=== PATIENT | male | born 1960 | race Caucasian/White ===

== ENCOUNTER 2022-01-19 07:59 | Emergency (ER) | payer BC ==
[2022-01-19] MEDS ORDERED: CIPROFLOXACIN HCL 500 MG TAB ONE (08:16)
[2022-01-19] MEDS ORDERED: LIDOCAINE VISCOUS 2% SOLN 15 ML UDC ONE (08:16)
[2022-01-19] MEDS ORDERED: LIDOCAINE HCL JELLY 2% 6 ML SYRINGE TOP ONE (08:17)
[2022-01-19 08:21] LABS: Urine Blood 2+ (Negative); Urine Glucose Negative (Negative); Urine Protein Negative (Negative); Urine Specific Gravity 1.025 (1.005-1.030)
--- NOTE | 2022-01-19 08:51 | EDPHYS ---
Physician Documentation [facility] Name: Popeye Blandon Age: 61 yrs Sex: Male : 1960 Arrival Date: 01/19/2022 Time: 08:00 Bed 8 Private MD: JEB Physician Warren Ibarra HPI: 01/19 08:45 This 61 yrs old Male presents to ER via Ambulatory with complaints of Urinary brisa Retention. 08:45 The patient presents with urinary symptoms, retention, unable to void. Onset: The brisa symptoms/episode began/occurred 1 day(s) ago. Modifying factors: The symptoms are alleviated by nothing, the symptoms are aggravated by nothing. Associated signs and symptoms: The patient has no apparent associated signs or symptoms. Severity of symptoms: At their worst the symptoms were mild, in the emergency department the symptoms have resolved. The patient has not experienced similar symptoms in the past. Historical: - Allergies: 08:11 No Known Allergies; vg1 - PMHx: 08:11 Enlarge Prostate; vg1 - Immunization history:: Client reports receiving the 2nd dose of the Covid vaccine. - Social history:: Smoking status: Patient denies any tobacco usage or history of. ROS: 08:46 Constitutional: Negative for fever, chills, and weight loss, Eyes: Negative for injury, brisa pain, redness, and discharge, ENT: Negative for injury, pain, and discharge, Neck: Negative for injury, pain, and swelling, Cardiovascular: Negative for chest pain, palpitations, and edema, Respiratory: Negative for shortness of breath, cough, wheezing, and pleuritic chest pain, Back: Negative for injury and pain, MS/Extremity: Negative for injury and deformity, Skin: Negative for injury, rash, and discoloration, Neuro: Negative for headache, weakness, numbness, tingling, and seizure, Psych: Negative for depression, anxiety, suicide ideation, homicidal ideation, and hallucinations, Allergy/Immunology: Negative for hives, rash, and allergies, Endocrine: Negative for neck swelling, polydipsia, polyuria, polyphagia, and marked weight changes, Hematologic/Lymphatic: Negative for swollen nodes, abnormal bleeding, and unusual bruising. 08:46 Abdomen/GI: Positive for abdominal pain, of the suprapubic area. Exam: 08:46 Constitutional: This is a well developed, well nourished patient who is awake, alert, brisa and in no acute distress. Head/Face: Normocephalic, atraumatic. Eyes: Pupils equal round and reactive to light, extra-ocular motions intact. Lids and lashes normal. Conjunctiva and sclera are non-icteric and not injected. Cornea within normal limits. Periorbital areas with no swelling, redness, or edema. ENT: Nares patent. No nasal discharge, no septal abnormalities noted. Tympanic membranes are normal and external auditory canals are clear. Oropharynx with no redness, swelling, or masses, exudates, or evidence of obstruction, uvula midline. Mucous membranes moist. Neck: Trachea midline, no thyromegaly or masses palpated, and no cervical lymphadenopathy. Supple, full range of motion without nuchal rigidity, or vertebral point tenderness. No Meningismus. Chest/axilla: Normal chest wall appearance and motion. Nontender with no deformity. No lesions are appreciated. Cardiovascular: Regular rate and rhythm with a normal S1 and S2. No gallops, murmurs, or rubs. Normal PMI, no JVD. No pulse deficits. Respiratory: Lungs have equal breath sounds bilaterally, clear to auscultation and percussion. No rales, rhonchi or wheezes noted. No increased work of breathing, no retractions or nasal flaring. Back: No spinal tenderness. No costovertebral tenderness. Full range of motion. Male : Normal genitalia with no discharge or lesions. Skin: Warm, dry with normal turgor. Normal color with no rashes, no lesions, and no evidence of cellulitis. MS/ Extremity: Pulses equal, no cyanosis. Neurovascular intact. Full, normal range of motion. Neuro: Awake and alert, GCS 15, oriented to person, place, time, and situation. Cranial nerves II-XII grossly intact. Motor strength 5/5 in all extremities. Sensory grossly intact. Cerebellar exam normal. Normal gait. Psych: Awake, alert, with orientation to person, place and time. Behavior, mood, and affect are within normal limits. 08:46 Abdomen/GI: Inspection: distension, that is moderate, in the suprapubic area, Liver: no appreciated palpable abnormalities, Hernia: not appreciated. Vital Signs: 08:10 BP 164 / 99; Pulse 73; Resp 26; Pulse Ox 100% on R/A; Weight 90.72 kg; Height 5 ft. 7 vg1 in. (170.18 cm); Pain 10/10; 08:14 Temp 97.7(O); jl7 08:24 Resp 20; ll1 09:11 BP 140 / 59; Pulse 65; Resp 15; Pulse Ox 93% on R/A; jl7 08:10 Body Mass Index 31.32 (90.72 kg, 170.18 cm) vg1 MDM: 08:02 Patient medically screened. brisa 08:48 Differential diagnosis: nonspecific abdominal pain, UTI, urinary retention, brisa prostatitis, urethritis. Data reviewed: vital signs, nurses notes, lab test result(s), urinalysis. 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 Counseling: I had a detailed discussion with the patient and/or guardian regarding: the historical points, exam findings, and any diagnostic results supporting the discharge/admit diagnosis, lab results. 01/19 08:05 Order name: Urine Culture [facility] 01/19 08:21 Order name: Urine Dipstick-Ancillary; Complete Time: 08:35 EDMS 01/19 09:25 Order name: CT Stone Protocol [facility] 01/19 08:05 Order name: Urine Dipstick-Ancillary (obtain specimen); Complete Time: 08:22 [facility] 01/19 08:05 Order name: Etienne; Complete Time: 08:14 [facility] 01/19 08:05 Order name: Etienne Leg Bag; Complete Time: 08:14 brisa Administered Medications: 08:21 Drug: Cipro (ciprofloxacin) 500 mg Route: PO; ll1 09:31 Follow up: Response: No adverse reaction jl7 08:21 Not Given (Patient Refused): Viscous Lidocaine Liquid (4 %) 5 ml Mucous Membrane once ll1 09:31 Drug: [place] (HYDROcodone-acetaminophen) 10 mg-325 mg 1 tabs Route: PO; jl7 10:06 Follow up: Response: No adverse reaction jl7 Disposition Summary: 01/19/22 08:50 Discharge Ordered Location: Home brisa Problem: new brisa Symptoms: have improved brisa Condition: Stable brisa Diagnosis - Retention of urine, unspecified - post residual 600 cc brisa Followup: brisa - With: Private Physician - When: 2 - 3 days - Reason: Recheck today's complaints, Continuance of care, Re-evaluation by your physician Followup: [facility] - With: Toy Alexandra MD - When: 2 - 3 days - Reason: Recheck today's complaints, Re-evaluation by your physician Discharge Instructions: - Discharge Summary Sheet brisa - Acute Urinary Retention, Male brisa - Acute Urinary Retention, Male, [id number] [facility] Forms: - Medication Reconciliation Form [facility] - Thank You Letter brisa - Antibiotic Education [facility] - Prescription Opioid Use [facility] Prescriptions: - Flomax 0.4 mg Oral capsule - take 1 capsule by ORAL route once daily 1/2 hour following the same meal each [facility] day; 30 capsule; Refills: 0, Product Selection Permitted - Cipro 250 mg Oral Tablet - take 1 tablet by ORAL route every 12 hours; 14 tablet; Refills: 0, Product [facility] Selection Permitted Signatures: Dispatcher [employer] Warren Barrett MD MD cha Leal, Jahala, RN RN jl7 Jordyn Jacques RN RN vg1 Mark Brown RN RN ll1
--- NOTE | 2022-01-19 08:51 | ER ---
Nurse's Notes [facility] Name: Popeye Blandon Age: 61 yrs Sex: Male : 1960 Arrival Date: 01/19/2022 Time: 08:00 Bed 8 Private MD: Diagnosis: Retention of urine, unspecified-post residual 600 cc Presentation: 01/19 08:10 Chief complaint: Patient states: has not been able to urinate since 0300. Pt c/o vg1 "excruciating" pain. Has hx of enlarged prostate. Coronavirus screen: Vaccine status: Patient reports receiving the 2nd dose of the covid vaccine. Client denies travel out of the [place] in the last 14 days. Ebola Screen: Patient negative for fever greater than or equal to 101.5 degrees Fahrenheit, and additional compatible Ebola Virus Disease symptoms. Initial Sepsis Screen: Does the patient meet any 2 criteria? RR > 20 per min. Does the patient have a suspected source of infection? No. Patient's initial sepsis screen is negative. Risk Assessment: Do you want to hurt yourself or someone else? Patient reports no desire to harm self or others. Onset of symptoms was January 19, 2022. 08:10 Method Of Arrival: Ambulatory vg1 08:10 Acuity: GEOVANNI 3 vg1 Triage Assessment: 08:11 General: Appears distressed, uncomfortable, Behavior is anxious. Pain: Complains of vg1 pain in pelvis Pain currently is 10 out of 10 on a pain scale. Noted to be agitated, grimacing, guarding, moaning. Neuro: Level of Consciousness is awake, alert, obeys commands, Oriented to person, place, time, situation. : Reports pain in suprapubic area. Derm: Skin is diaphoretic. Historical: - Allergies: 08:11 No Known Allergies; vg1 - PMHx: 08:11 Enlarge Prostate; vg1 - Immunization history:: Client reports receiving the 2nd dose of the Covid vaccine. - Social history:: Smoking status: Patient denies any tobacco usage or history of. Screenin:13 Abuse screen: Denies threats or abuse. Nutritional screening: No deficits noted. vg1 Tuberculosis screening: No symptoms or risk factors identified. Fall Risk No fall in past 12 months (0 pts). No secondary diagnosis (0 pts). IV access (20 points). Ambulatory Aid- None/Bed Rest/Nurse Assist (0 pts). Gait- Normal/Bed Rest/Wheelchair (0 pts) Mental Status- Oriented to own ability (0 pts). Total Turner Fall Scale indicates No Risk (0-24 pts). Assessment: 08:10 General: Appears in no apparent distress. uncomfortable, Behavior is cooperative, jl7 anxious, restless. Pain: Complains of pain in suprapubic area Pain currently is 10 out of 10 on a pain scale. Neuro: Level of Consciousness is awake, alert, obeys commands, Oriented to person, place, time, situation. Cardiovascular: Patient's skin is warm and dry. Respiratory: Airway is patent Respiratory effort is even, unlabored, Respiratory pattern is symmetrical, tachypnea. : Reports inability to void, since last void at 0300, woke at 0530 and unable to void. Derm: Skin is pink, warm \\T\\ dry. 08:15 Reassessment: Pt reports immediate relief post catheter insertion. jl7 08:23 Reassessment: No changes from previously documented assessment. Patient states feeling ll1 better. Patient states symptoms have improved. 09:20 Reassessment: Pt up for discharge, on discharge instructions pt reports mild jl7 intermittent left flank pain that just started. ERD notified, CT stone ordered and [place] ordered, pt reports he is not driving himself. 09:34 Reassessment: Pt to CT, will be discharged once CT is resulted. jl7 10:06 Reassessment: Pt given discharge and followup instructions. jl7 Vital Signs: 08:10 BP 164 / 99; Pulse 73; Resp 26; Pulse Ox 100% on R/A; Weight 90.72 kg; Height 5 ft. 7 vg1 in. (170.18 cm); Pain 10/10; 08:14 Temp 97.7(O); jl7 08:24 Resp 20; ll1 09:11 BP 140 / 59; Pulse 65; Resp 15; Pulse Ox 93% on R/A; jl7 08:10 Body Mass Index 31.32 (90.72 kg, 170.18 cm) vg1 ED Course: 08:00 Patient arrived in ED. am2 08:01 Warren Ibarra MD is Attending Physician. [facility] 08:10 Urine collected: Etienne catheter specimen, clear, Amount Returned: 500mL. Etienne cath jl7 inserted, using sterile technique, 16 Fr., by mo, balloon inflated, urine specimen collected. returned clear yellow urine. Patient tolerated well. 08:11 Triage completed. vg1 08:11 Arm band placed on. vg1 08:13 Taran Garner, RN is Primary Nurse. jl7 08:13 Patient has correct armband on for positive identification. Placed in gown. Bed in low vg1 position. Call light in reach. Side rails up X 1. 08:14 Bladder scan completed. 475 mL. vg1 08:16 Pulse ox on. NIBP on. Warm blanket given. jl7 08:50 Toy Alexandra MD is Referral Physician. [facility] 09:39 CT Stone Protocol In Process Unspecified. EDSD 10:05 No provider procedures requiring assistance completed. Patient did not have IV access jl7 during this emergency room visit. Administered Medications: 08:21 Drug: Cipro (ciprofloxacin) 500 mg Route: PO; ll1 09:31 Follow up: Response: No adverse reaction jl7 08:21 Not Given (Patient Refused): Viscous Lidocaine Liquid (4 %) 5 ml Mucous Membrane once ll1 09:31 Drug: [place] (HYDROcodone-acetaminophen) 10 mg-325 mg 1 tabs Route: PO; jl7 10:06 Follow up: Response: No adverse reaction jl7 Medication: 08:13 VIS not applicable for this client. vg1 Outcome: 08:50 Discharge ordered by . [facility] 10:06 Discharged to home ambulatory. jl7 10:06 Condition: stable 10:06 Discharge instructions given to patient, Instructed on discharge instructions, follow up and referral plans. medication usage, Demonstrated understanding of instructions, follow-up care, medications, Prescriptions given X 2. 10:06 Patient left the ED. jl7 Signatures: Dispatcher [employer] EDSD Warren Ibarra MD MD cha Leal, Jahala, RN RN jl7 Anamaria Crespo Victoria, RN RN vg1 Mark Brown RN RN ll1
[2022-01-19] MEDS ORDERED: HYDROCODONE/APAP 10/325 TAB ONE (09:29)
--- NOTE | 2022-01-19 09:58 | RAD REPORT ---
[facility] DES[facility] 9:37 am CLINICAL HISTORY: Flank pain, kidney stone suspected COMPARISON: No comparisons TECHNIQUE: CT of the abdomen and pelvis was performed. All CT scans are performed using dose optimization technique as appropriate and may include automated exposure control or mA/KV adjustment according to patient size. FINDINGS: Lower chest: Calcified left lower lobe nodule. Liver: No acute abnormality or suspicious lesions. Biliary: No biliary ductal dilatation. Stomach: No significant focal abnormality. Duodenum: No significant focal abnormality. Pancreas: No significant abnormality. Spleen: No significant abnormality. Adrenal: No suspicious lesions. Kidney/ureter: No hydronephrosis. No renal calculi. Mild bilateral periureteric stranding. Retroperitoneum: No retroperitoneal adenopathy. Vascular: No aneurysm. Bowel: No significant focal abnormality. Peritoneum: No ascites or free air. Bladder: The bladder is decompressed via Etienne catheter. Bladder wall thickening and stranding is pre sent. Reproductive: Prostatomegaly. The prostate measures 5.6 cm in transverse dimension. Bones: No acute fracture. Multilevel degenerative changes are present in the spine. Other: n/a IMPRESSION: Bladder wall thickening and stranding could be secondary to cystitis. The bladder is dec ompressed via Etienne catheter. Mild periureteric stranding bilaterally but no hydronephrosis could ind icate some component of and ascending urinary tract infection. Moderate prostatomegaly.
[2022-01-19 10:15] VITALS: BP 140/59; TEMP 97.7; O2SAT 93
== END 2022-01-19 10:06 | disposition home or self-care (01) ==
LOC: ER 07:59
DX: R33.9 Retention of urine, unspecified (principal)
CPT/HCPCS: 51702; 74176; 76377; 81003; 87086; 87088; 99284

== ENCOUNTER 2022-03-04 06:39 | Day surgery (SDC) | payer BC ==
[2022-02-17 10:34] LABS: Hematocrit 44.1 % (39.6-49.0); Lymphocytes % 23.3 % (15.3-44.8); MCV 84.7 fL (80-100); MPV 7.5 fL (7.6-11.3); RBC Red Blood Cell Count 5.21 M/uL (4.33-5.43)
[2022-02-17 10:45] LABS: Protime INR 0.98
[2022-02-17 10:49] LABS: Potassium 4.3 mmol/L (3.5-5.1)
--- NOTE | 2022-02-17 11:11 | RAD REPORT ---
EXAM DESCRIPTION: Ashley Vo And Lat (2 Views)02/17/2022 10:54 am CLINICAL HISTORY: Preop for your urolift. Hypertension COMPARISON: None FINDINGS: The area scarring or subsegmental atelectasis left lung base. The remainder lungs appear clear. Heart is normal size
--- NOTE | 2022-02-17 14:55 | EKG ---
Test Date: 2022-02-17 Test Time: 10:11:49 Sales Exhibitor: JIM MEASUREMENT RESULTS: Intervals: Rate: 65 MS: 176 QRSD: 74 QT: 386 QTc: 401 [place]: P: 49 MS: 176 QRS: 32 T: 29 INTERPRETIVE STATEMENTS: Normal sinus rhythm Normal ECG No previous ECG available for comparison Electronically Signed On 02-17-22 14:54:48 [employer] by Rafael Kang
[2022-03-04] MEDS ORDERED: MIDAZOLAM HCL 2 MG/2 ML INJ ONE (06:58)
[2022-03-04] MEDS ORDERED: propofoL 200 MG/20 ML VIAL IV ONE (06:58)
[2022-03-04] MEDS ORDERED: FENTANYL CITR 100 MCG/2 ML ONE (06:58)
[2022-03-04] MEDS ORDERED: ONDANSETRON 4 MG/2 ML VIAL ONE (07:01)
[2022-03-04] MEDS ORDERED: LIDOCAINE 1% MPF 5 ML VIAL ONE (07:02)
[2022-03-04] MEDS ORDERED: Ringers Lactate 1,000 ML IV ONE (07:04)
[2022-03-04] MEDS: CEFAZOLIN SODIUM 2 GM/VIAL ONE ×2 (07:30→07:44)
[2022-03-04] MEDS ORDERED: EPHEDRINE SULF 50 MG/ML VIAL ONE (07:47)
[2022-03-04] MEDS: HYDROMORPHONE HCL 1 MG/ML INJ ONE ×2 (08:39→08:44)
[2022-03-04 08:45] VITALS: TEMP 97.1
[2022-03-04] MEDS ORDERED: CODEINE 30MG/APAP 300MG TAB PO PRN (08:45)
[2022-03-04] MEDS ORDERED: PHENAZOPYRIDINE 100MG TAB PO ONE ×2 (08:45→09:34)
[2022-03-04] MEDS ORDERED: CODEINE 30MG/APAP 300MG TAB ONE (09:34)
--- NOTE | 2022-03-04 09:46 | OP ---
Surgeon: EMMA SARMIENTO Preoperative Diagnoses: 1.BPH with lower urinary obstruction and symptoms. 2.History of acute urinary retention. Postoperative Diagnoses: 1.BPH with lower urinary obstruction and symptoms. 2.History of acute urinary retention. Principal Procedures: 1.Prostatic urethral lift/UroLift. 2.9 implants used, 8 successfully implanted. Indication For Procedure: Mr. Blandon is a 62-year-old gentleman, who had BPH with lower urinary symp toms, managed on combination therapy with Flomax plus finasteride for many years, who underwent acute urinary retention requiring a catheter to be placed. Subsequent evaluation revealed the presence of interdigitating lateral lobar hypertrophy with mild intravesical projection, not obscuring the urete ral orifices. As a result, he was counseled on options for management of his prostatic urethral obst ruction and elected to proceed with the UroLift. Procedure In Detail: The patient was consented in the preoperative holding area before being transfe rred to the operative suite where general anesthesia was induced. He was given Ancef 2 g IV antimicr obial prophylaxis and pneumo boots were provided for DVT prophylaxis. He was placed in the lithotomy position, padded and secured to the table appropriately. His genitalia were prepped with Hibiclens and he was draped in standard fashion. The case was begun using the 20-[place] UroLift sheath and vis ual obturator to traverse the urethra and enter his bladder with ease. The previously noted interdig itating lateral lobar hypertrophy was noted this time without significant elevation of the median bar and no intravesical projection of a median lobe. As a result, the initial implant target site selec lisa was in the left lateral lobe of the prostate about 1.5 to 2 cm distal to the bladder neck. At th e anterior lateral position at approximately 1 to 2 o'clock, the initial implant was angled about 10 degrees and the first pole of the trigger delivered the needle containing the capsular tab through th e surface of the prostate. Additional 10 degrees of compression was then obtained delivering the nee dle through the prostate to ensure it exited the capsule. A second pull of the trigger then deployed the capsular tab and retracted the needle partially. Additional compression was then obtained, and a third pull of the trigger completely retracted the needle. I then angled the scope tip back toward the midline and advanced about 2 to 3 mm until the white of the monofilament was seen centered in th e delivery bay, and then I pulled the trigger fourth time, successfully delivering the implant to the prostatic urethral luminal surface. The implant did invaginate nicely with a nice 0.5 to 1 cm lip o f tissue between the implant and the entry into the bladder. As a result, I advanced the scope back into the bladder and exchanged it for a new implant, which was then targeted similarly on the right s emily in a similar position contralaterally between 10 and 11 o'clock about 1.5 to 2 cm distal to the b ladder neck. This implant was also successfully placed using the same methodology as described above . The implant again did seat with a nice lip of tissue approximately 0.5 to 1 cm distal to the bladd er neck. As a result, I then switched the implant delivery device for a third delivery device, which was then placed at the level of the verumontanum apical laterally. This third implant was successfu lly placed, and so I placed a fourth implant contralaterally at the level of the verumontanum. This began creation of a nice anterior channel visualized using a visual obturator. However, there was st ill significant lateral lobar intrusion in the intervening tissue. As a result, a fifth implant was targeted to that tissue in the left lateral lobe of the prostate and did lateralize a significant com ponent of that tissue. An additional implant was targeted on the right lateral lobe of the prostate in the mid zone of the prostate and this was successfully placed. At this time, a total of 6 implant s had been placed. Using the visual obturator to survey the channel, there was residual anterolatera l tissue overhanging coming mostly from the left side of the prostate and partially obscuring the lum en; so a seventh implant was targeted at this time in a stack position over the midzone implant later ally and did elevate the majority of that tissue. Re-survey using the visual obturator revealed a de gree of tissue still anterolaterally overhanging this time a bit closer to the bladder neck than the last implant that was placed. As a result, an eighth implant was targeted to that tissue in that loc ation. Unfortunately, with the first trigger pull, it did not seem to deliver the needle successfull y through the capsular surface of the prostate, and despite attempts to lateralize the needle complet e delivery, this after all trigger pulls were performed resulted in the capsular tab being pulled thr ough the prostate and seeding right next to the implant. As a result, I then had to switch to the cy stoscope and use a grasper to remove that implant and the capsular tab, which did come out as 1 piece . I then utilized a ninth implant attempting to mimic removal of tissue in that position and was abl e to successfully place that implant. As a result, a total of 9 implants were used with 8 successful ly placed and in the end, there was a continuous anterior channel with minimal anterolateral overhang coming from the left side, but insufficient to require a tenth implant. As a result, his bladder wa s irrigated to free it of any blood and clots, and then I left it full before placing an 18-[place]uan co ude tip catheter with ease. Approximately 30 cc of sterile water placed in the balloon, and the cath eter was placed to gravity drainage. I again irrigated the catheter to ensure no clots and minimal p ain, and by the way that was minimal heme, and once I was happy with the appearance of the efflux of fluid and urine, the catheter was connected to a leg bag. The patient was then taken out of the lith otomy position, awakened from general anesthesia, transferred to a stretcher, and then transferred to the recovery room in good condition. Complications: None. Discharge Disposition: He will be given an opportunity to void in the recovery and if successful malorie l be discharged without a catheter. Subsequent followup should be established in about a month. Ellen uld he fail a voiding trial, he will be instructed how to remove the catheter tomorrow morning at [facility] with instructions to contact us in prepare to come to the clinic if he is unable to void within 6 h ours. NORMA/MODL Voice ID: [id number] Report ID: [id number]
[2022-03-04] MEDS ORDERED: H2O FOR IRR,STER 1,000 ML IRR ONE (10:05)
[2022-03-04 10:16] VITALS: O2SAT 97
[2022-03-04 11:23] VITALS: BP 134/81
== END 2022-03-04 11:05 | disposition home or self-care (01) ==
LOC: OR 06:39
PROVIDERS: ATTEND Urology
PROC: 0T7D8DZ Dilation of Urethra with Intraluminal Device, Via Natural or Artificial Opening Endoscopic (ICD-10-PCS; principal; 2022-03-04 07:30)
DX: N40.1 Benign prostatic hyperplasia with lower urinary tract symptoms (principal); N13.8 Other obstructive and reflux uropathy; I10 Essential (primary) hypertension; R33.8 Other retention of urine; N41.1 Chronic prostatitis; R97.20 Elevated prostate specific antigen [PSA]; R31.0 Gross hematuria
CPT/HCPCS: 93005; 87088; 85025; 87086; 80048; 36415; 85610; 71046; 52441; 52442 ×7; J2704; J2001; J2250; J3010; J1170; J7120; J2405